=== PATIENT | female | born 1960 | race Caucasian/White ===

== ENCOUNTER → 2017-09-08 09:18 | Emergency (ER) | payer BC ==
[2017-09-08 09:23] VITALS: BP 153/72
--- NOTE | 2017-09-08 10:07 | RAD ---
Edited for charges. Indication: RIGHT foot and ankle pain and lateral swelling following injury. Comparison: No relevant prior exams available on the [facility] for [place]. Technique: AP, mortise, and lateral views RIGHT ankle. AP and lateral views RIGHT foot. Report: Solitary fixation screw at the base of the first metatarsal traversing a probable healed osteotomy site. Moderate osteophytosis and joint space narrowing at the first and second metatarsal phalangeal joints. Mild osteophytosis at the talonavicular articulation. Normal articular alignment throughout. Osseous fusion at the second and third proximal interphalangeal joints. Negative for fracture, osteochondral lesion, or stigmata of stress reaction. Significant soft tissue swelling over the lateral malleolus and suggestion of talocrural joint effusion. IMPRESSION: 1. No evidence for fracture. 2. Consider potential lateral supporting ligament injury given magnitude of lateral soft tissue swelling and suggestion of talocrural joint effusion. MTDD
--- NOTE | 2017-09-08 17:48 | ED ---
Pablo Baumann Angela, scribed for Andrea eKn MD on 09/08/17 at 0932 . Lower Extremity - HPI Summary HPI Summary: This pt is a 57 y/o female presenting to [facility] c/o right ankle pain s/p twisting injury today. Pt reports she took a wrong step and twisted her right ankle inwards. She notes that after her injury she went to work. She states she wrapped her ankle with an matthew warp. Pt decided to come to the ED for increased pain. She denies LOC, knee pain or any other injury. PMHx: tibial plateau fracture in right leg (2013). She denies any other PMHx. - History of Current Complaint Chief Complaint: EDExtremityLower Stated Complaint: RIGHT ANKLE PAIN Time Seen by Provider: 09/08/17 09:25 Hx Obtained From: Patient Mechanism Of Injury: Twisted Onset of Pain: Hours Onset/Duration: Hours Pain Intensity: 8 Pain Scale Used: 0-10 Numeric Timing: Constant Location: Is Discrete @ - right ankle Character Of Pain: Aching Associated Signs And Symptoms: Positive: Other - right ankle pain Able to Bear Weight: Yes - Allergies/Home Medications Allergies/Adverse Reactions: Allergies Allergy/AdvReac Type Severity Reaction Status Date / Time No Known Allergies Allergy Verified 01/28/16 13:56 PMH/Surg Hx/FS Hx/Imm Hx Endocrine/Hematology History: Denies: Hx Diabetes Cardiovascular History: Denies: Hx Hypertension Musculoskeletal History: Denies: Hx Rheumatoid Arthritis, Hx Osteoporosis - Cancer History Hx Chemotherapy: No Hx Radiation Therapy: No - Surgical History Surgery Procedure, Year, and Place: feet - bunion/hammer toe Infectious Disease History: No Infectious Disease History: Denies: History Other Infectious Disease, Traveled Outside the [place] in Last 30 Days - Family History Known Family History: Positive: Hypertension - mother and father, Other - Mother : COPD - Social History Alcohol Use: Occasionally Substance Use Type: Reports: None Smoking Status (MU): Never Smoked Tobacco Review of Systems Negative: Fever, Chills Eyes: Negative ENT: Negative Cardiovascular: Negative Respiratory: Negative Musculoskeletal: Negative - knee pain Positive: Other - right ankle pain Negative: Headache, Syncope All Other Systems Reviewed And Are Negative: Yes Physical Exam - Summary Physical Exam Summary: VITAL SIGNS: Reviewed. GENERAL: Patient is a well-developed and nourished female who is lying comfortable in the stretcher. Patient is not in any acute respiratory distress. HEAD AND FACE: No signs of trauma. No ecchymosis, hematomas or skull depressions. No sinus tenderness. EYES: PERRLA, EOMI x 2, No injected conjunctiva, no nystagmus. EARS: Hearing grossly intact. Ear canals and tympanic membranes are within normal limits. MOUTH: Oropharynx within normal limits. NECK: Supple, trachea is midline, no adenopathy, no JVD, no carotid bruit, no c- spine tenderness, neck with full ROM. CHEST: Symmetric, no tenderness at palpation LUNGS: Clear to auscultation bilaterally. No wheezing or crackles. CVS: Regular rate and rhythm, S1 and S2 present, no murmurs or gallops appreciated. ABDOMEN: Soft, non-tender. No signs of distention. No rebound no guarding, and no masses palpated. Bowel sounds are normal. EXTREMITIES: FROM in all major joints, no edema, no cyanosis or clubbing. Right ankle tenderness. NEURO: Alert and oriented x 3. No acute neurological deficits. Speech is normal and follows commands. SKIN: Dry and warm Triage Information Reviewed: Yes Vital Signs On Initial Exam: Initial Vitals Temp Pulse Resp BP Pulse Ox 97.5 F 73 16 153/72 99 09/08/17 09:20 09/08/17 09:20 09/08/17 09:20 09/08/17 09:20 09/08/17 09:20 Vital Signs Reviewed: Yes Diagnostics - Vital Signs Vital Signs Temp Pulse Resp BP Pulse Ox 09/08/17 09:20 97.5 F 73 16 153/72 99 - Laboratory Lab Statement: Any lab studies that have been ordered have been reviewed, and results considered in the medical decision making process. - Radiology Right foot XR Xray Interpretation: No Acute Changes - IMPRESSION: 1. No evidence for fracture. 2. Consider potential lateral supporting ligament injury given magnitude of lateral soft tissue and suggestion of talocrural joint effusion. ED physician has reviewed this radiology report and agrees. Radiology Interpretation Completed By: Radiologist Right ankle XR Xray Interpretation: No Acute Changes - IMPRESSION: 1. No evidence for fracture. 2. Consider potential lateral supporting ligament injury given magnitude of lateral soft tissue and suggestion of talocrural joint effusion. ED physician has reviewed this radiology report and agrees. Radiology Interpretation Completed By: Radiologist Lower Extremity Course/Dx - Course Assessment/Plan: This pt is a 57 y/o female presenting to [facility] c/o right ankle pain s/p twisting injury today. Pt reports she took a wrong step and twisted her right ankle inwards. She notes that after her injury she went to work. She states she wrapped her ankle with an matthew warp. Pt decided to come to the ED for increased pain. She denies LOC, knee pain or any other injury. PMHx: tibial plateau fracture in right leg (2013). She denies any other PMHx. XR of right foot is negative for fracture or dislocation. XR of right ankle is negative for fracture or dislocation. In the ED course, she did not require pain medications. We placed bandages, an aircast brace and was given crutches. She will follow up with PCP and orthopedics as needed. Pt is hemodynamically stable , alert and oriented x3. - Diagnoses Differential Diagnosis/HQI/PQRI: Positive: Bursitis, Fracture (Closed), Sprain, Strain, Tendonitis Provider Diagnoses: Right ankle pain Discharge - Discharge Plan Condition: Stable Disposition: HOME Prescriptions: Ibuprofen TAB* [Motrin TAB* 600 MG] 600 mg PO Q8H PRN #20 tab PRN Reason: Pain Patient Education Materials: Arthralgia (ED) Referrals: Anupama Maldonado MD [Primary Care Provider] - Additional Instructions: Please follow up with your primary care provider. RETURN TO THE ED IF YOUR SYMPTOMS WORSEN. The documentation as recorded by the Pablo lucas Angela accurately reflects the service I personally performed and the decisions made by , Andrea Ken MD.
== END | disposition home or self-care (01) ==
LOC: ED 09:18
DX: M25.571 Pain in right ankle and joints of right foot (principal)
CPT/HCPCS: 99281

== ENCOUNTER 2019-08-12 12:53 | Emergency (ER) | payer OTHER, BC ==
--- NOTE | 2019-08-12 13:18 | ED ---
Adult Trauma - HPI Summary HPI Summary: Patient is a 59-year-old female who presents emergency department for right shoulder and hip pain after falling from a horse just prior to arrival. Patient states she was riding a horse inside rink when the horse was spooked and threw pt. off. Pt. states she struck a wall with her right side. Denies head injury or LOC. Pt. denies CP, SOB, abd. pain, numbness, tingling or weakness. Is not anticoagulated. Movement makes sxs worse. Rest makes sxs better. - History of Current Complaint Chief Complaint: EDFall Stated Complaint: R SHOULDER PAIN PER EMS Time Seen by Provider: 08/12/19 13:01 Hx Obtained From: Patient Pain Intensity: 5 - Allergy/Home Medications Allergies/Adverse Reactions: Allergies Allergy/AdvReac Type Severity Reaction Status Date / Time No Known Allergies Allergy Verified 01/28/16 13:56 PMH/Surg Hx/FS Hx/Imm Hx Previously Healthy: Yes Endocrine/Hematology History: Denies: Hx Diabetes Cardiovascular History: Denies: Hx Hypertension Musculoskeletal History: Denies: Hx Rheumatoid Arthritis, Hx Osteoporosis - Cancer History Hx Chemotherapy: No Hx Radiation Therapy: No - Surgical History Surgery Procedure, Year, and Place: feet - bunion/hammer toe Infectious Disease History: No Infectious Disease History: Denies: History Other Infectious Disease, Traveled Outside the [place] in Last 30 Days - Family History Known Family History: Positive: Unknown, Hypertension - mother and father, Other - Mother: COPD - Social History Occupation: Retired Lives: With Family Alcohol Use: Occasionally Substance Use Type: Reports: None Smoking Status (MU): Never Smoked Tobacco Review of Systems ENT: Negative Cardiovascular: Negative Negative: Chest Pain Respiratory: Negative Negative: Shortness Of Breath Gastrointestinal: Negative Negative: Abdominal Pain Genitourinary: Negative Negative: hematuria Positive: Other - right shoulder and right hip pain Positive: Bruising Neurological: Negative Negative: Headache, Weakness, Paresthesia, Numbness, Syncope, Slurred Speech All Other Systems Reviewed And Are Negative: Yes Physical Exam Triage Information Reviewed: Yes Vital Signs On Initial Exam: Initial Vitals Temp Pulse Resp BP Pulse Ox 98.8 F 94 20 142/80 99 08/12/19 13:05 08/12/19 13:05 08/12/19 13:05 08/12/19 13:05 08/12/19 13:05 Vital Signs Reviewed: Yes Appearance: Positive: Well-Appearing - Pt. lying in bed in NAD. Pleasant. Friend present. Skin: Positive: Warm, Dry Head/Face: Positive: Normal Head/Face Inspection. Negative: Cephalohematoma Eyes: Positive: Normal, EOMI, MARIANA, Conjunctiva Clear Neck: Positive: Supple, Other: - No midline cervical tenderness. Pain over trapizeus muscles. Respiratory/Lung Sounds: Positive: Clear to Auscultation, Breath Sounds Present. Negative: Decreased Breath Sounds Cardiovascular: Positive: Normal, RRR Abdomen Description: Positive: Nontender, Soft Musculoskeletal: Positive: Other - No midline vertebral tenderness. Pain over proximal right humerous. Good radial pulse. Overlying superficial abrasion. Pain and hematoma to right lateral hip. Good pedal pulse. No distal bony tenderness. Neurological: Positive: Normal, CN Intact II-III Psychiatric: Positive: Affect/Mood Appropriate Diagnostics - Vital Signs Vital Signs Temp Pulse Resp BP Pulse Ox 08/12/19 13:05 98.8 F 91 20 142/80 99 - Laboratory Lab Statement: Any lab studies that have been ordered have been reviewed, and results considered in the medical decision making process. Adult Trauma Course/Dx - Course Course Of Treatment: Patient presenting after falling from a horse. No head chest or abdominal injuries. Vital signs are stable. Patient declines analgesics. X-rays of cervical spine, right shoulder and right hip are negative for acute findings, reading per radiology. Patient ambulatory to the restroom and had a lot of pain bearing weight on to the right hip. Given age and arthritic changes Will obtain CT scan to rule out occult fracture. CT scan of pelvis is negative for occult fracture, reading per radiology. Results discussed. Advised patient to ice and elevate affected areas intermittently. Tylenol or Motrin for pain as directed. To follow-up with family doctor for recheck within 1 week. Return to the ER symptoms change or worsen. Patient understands and agrees with plan. - Diagnoses Differential Diagnosis/HQI/PQRI: Positive: Contusion(s), Fracture, Dislocation, Hematoma(s), Sprain, Strain Provider Diagnoses: Cervical strain, Contusion, hip, Arm contusion Discharge ED - Sign-Out/Discharge Documenting (check all that apply): Patient Departure Patient Received Moderate/Deep Sedation with Procedure: No - Discharge Plan Condition: Good Disposition: HOME Patient Education Materials: Cervical Strain (ED), Shoulder Pain (ED), Hip Contusion (ED) Forms: *Work Release Referrals: Anupama Maldonado MD [Primary Care Provider] - Additional Instructions: Follow up with your PCP Ice areas intermittently Activity as tolerated Tylenol or Motrin for pain as directed Return to ER if symptoms change or worsen - Billing Disposition and Condition Condition: GOOD Disposition: Home
--- OUTSIDE RECORDS SUMMARY | 2019-08-12 13:29 | XMS REPORT | Continuity of Care Document ---
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 Onset: 04/15/2009 Social History Type Date Description Comments Sex Unknown Tobacco Use Start: Unknown Nonsmoker Smoking Status Reviewed: 05/14/19 Nonsmoker ETOH Use Occasionally consumes alcohol Tobacco Use Start: Unknown Patient has never smoked Recreational Drug Use Denies Drug Use Allergies, Adverse Reactions, Alerts Description No Known Drug Allergies Medications Active Medications SIG Qnty Indications Ordering Provider Date Vitamin D3 1 by mouth every Unknown Capsules day Probiotic 1 by mouth every Unknown Capsules day Magnesium 1/2 tablet daily Unknown Tablet Vitamin A 1 capsule daily Unknown Capsules History Medications Ciclopirox Olamine apply to affected 30gm R21 Palak Ly, 2018 - area on face Stephen 05/28/2019 0.77% Cream twice a day Immunizations CPT Code Status Date Vaccine Lot # [id number] Given 09/12/2017 Tdap Tetanus, W Pertussis [id number] Vital Signs Date Vital Result Comment 07/24/2019 9:49am BP Systolic 130 mmHg BP Diastolic 70 mmHg Heart Rate 70 /min Body Temperature 98.2 F Respiratory Rate 16 /min Height 64 inches 5'4" Weight 169.00 lb BMI (Body Mass Index) 29.0 kg/m2 05/21/2019 8:54am BP Systolic 132 mmHg BP Diastolic 82 mmHg Heart Rate 68 /min Body Temperature 98.1 F Weight 175.00 lb Results Test Date Facility Test Result H/L Range Note Laboratory [place] 07[place]24/2019 [facility] [place]> finding Thinprep w/rfx([facility] [place]) Lipid Profile 05/30/2019 Leslie Briseyda([facility]) Cholesterol 205 mg/dL High 120-200 Triglycerides 47 mg/dL 30-200 HDL Cholesterol 69 mg/dL 30-85 LDL (Calculated) 127 CALC 0-129 VLDL Cholesterol 9 mg/dL 0-50 HDL Risk Factor 3.0 CALC 0.0-4.4 Laboratory test finding 05/30/2019 Leslie Briseyda([facility]) TSH 2.19 mIU/L 0.50-6.00 Comprehensive Metabolic 05/30/2019 Leslie Briseyda([facility]) Sodium 138 mEq/L 134-149 Prof Potassium 4.4 mEq/L 3.6-5.5 Chloride 100 mEq/L 94-112 Carbon Dioxide 29 mEq/L 21-32 Glucose 105 mg/dL 70-105 BUN 18 mg/dL 6-26 Creatinine 0.7 mg/dL 0.6-1.4 BUN/Creat Ratio 25.7 CALC 8.0-36.0 Calcium 9.1 mg/dL 8.6-10.2 Total Protein 6.4 g/dL 6.4-8.3 Albumin 4.2 g/dL 3.8-5.5 Globulin 2.2 g/dL 2.0-4.8 A/G Ratio 1.9 CALC 0.6-2.3 Alk. Phosphatase 57 U/L 30-110 Alt (SGPT) 15 U/L 7-35 Ast (Sgot) 11 U/L 5-34 Total Bilirubin 0.7 mg/dL 0.2-1.3 GFR Non- >60 ml/min/1.73m^ >=60 GFR >60 ml/min/1.73m^ >=60 Laboratory test 05/30/2019 Leslie Briseyda([facility]) Vitamin D25 38 30-100 finding CBC Electronic a 05/30/2019 Leslie Briseyda([facility]) WBC 4.1 4.0-10.0 x10^3/UL RBC 4.55 x10^6/UL 3.93-6.00 HGB 13.7 g/dL 12.0-17.0 HCT 41 % 35-50 MCV 90.3 fL 80.0-95.0 MCH 30.1 pg 25.6-32.2 MCHC 33.3 g/dL 32.2-36.0 RDW-CV 12.7 % 11.6-14.4 PLT 311 x10^3/UL 163-400 MPV 10.4 fL 9.4-12.4 Lavonne# 2.53 x10^3/UL 1.56-6.13 Lymph# 1.04 x10^3/UL Low 1.18-3.74 Marion# 0.41 x10^3/UL 0.24-0.82 Eos # 0.1 x10^3/UL 0.0-0.5 Baso # 0.03 x10^3/UL 0.01-0.08 Lavnone% 61.9 % 34.0-70.0 Lymph % 25.4 % 20.0-52.0 Marion% 10.0 % 5.0-12.0 Eos% 2.0 % 0.7-7.0 Baso% 0.7 % 0.1-1.2 Procedures Date Code Description Status 05/21/2019 [id number] Mammogram Completed 02/04/2015 [id number] Mammogram Completed 01/28/2015 [id number] Colonoscopy Completed 06/05/2013 [id number] Mammogram Completed 08/11/2011 [id number] Mammogram Completed 02/04/2010 [id number] Mammogram Completed 01/22/2010 [id number] Colonoscopy Completed 02/19/2008 [id number] Mammogram Completed 02/17/2007 [id number] Mammogram Completed Medical Devices Description No Information Available Encounters Type Date Location Provider Dx Diagnosis Office Visit 05/21/2019 Main Office Carrie Phelan Rash and other 9:00a Afnp-C nonspecific skin eruption Z13.220 Encounter for screening for lipoid disorders Z13.228 Encounter for screening for other metabolic disorders Office Visit 05/14/2019 10:45a [facility] Palak Butler Rash and other Stephen Ly nonspecific skin eruption Z12.31 Encntr screen mammogram for malignant neoplasm of breast Assessments Date Code Description Provider 07/24/2019 Z01.419 Encounter for gynecological examination Palak Hilsdorf , Afnp-C (general) (routine) without abnormal findings 05/30/2019 Z13.220 Encounter for screening for lipoid Palak Ly, Afnp -C disorders 05/30/2019 Z13.228 Encounter for screening for other Palak Olsenorf, Afnp- C metabolic disorders 05/30/2019 E55.9 Vitamin D deficiency, unspecified Palak Ly, Afnp-C 05/21/2019 R21 Rash and other nonspecific skin eruption Palak Olsenorf, Afnp-C 05/21/2019 Z13.220 Encounter for screening for lipoid Palak Hilsdorf, Afnp -C disorders 05/21/2019 Z13.228 Encounter for screening for other Palak Hilsdorf, Afnp- C metabolic disorders 05/14/2019 R21 Rash and other nonspecific skin eruption Palak Olsenorf, Afnp-C 05/14/2019 Z12.31 Encounter for screening mammogram for Palak Ly, Fridanp-C malignant neoplasm of Plan of Treatment 07/24/2019 - Julio Phelan-CZ01.419 Encounter for gynecological examination (general) (routine) without abnormal findingsAllComments:Medication Management Patient Understands medications she's taking? Yes No no rx meds Are there Barriers to Adherence? Yes No Has the patient been asked about herbal supplements and therapies, and OTC meds? Yes No Care Plan1. Patient has been queried about patient's goals/preferences and functional/lifestyle goals at relevant visits. If relevant, describe: na2. Treatment goals as explained to the patient: aboveroutine health maintenance and diesase prevention 3. Are there barriers to meeting treatment goals? Yes No If Yes, please describe:4. Self-Management goals as described to the patient: Yes No labs reviewed lo cv risk will notify if pap abnormal Functional Status Description No Information Available Mental Status Description No Information Available Referrals Description No Information Available
[2019-08-12 16:23] VITALS: BP 135/78
== END 2019-08-12 16:30 | disposition home or self-care (01) ==
LOC: ED 12:53
DX: S16.1XXA Strain of muscle, fascia and tendon at neck level, initial encounter (principal); S70.01XA Contusion of right hip, initial encounter; S40.011A Contusion of right shoulder, initial encounter; V80.010A Animal-rider injured by fall from or being thrown from horse in noncollision accident, initial encounter; Y93.52 Activity, horseback riding; Y92.89 Other specified places as the place of occurrence of the external cause; M85.88 Other specified disorders of bone density and structure, other site; M16.11 Unilateral primary osteoarthritis, right hip; M50.30 Other cervical disc degeneration, unspecified cervical region; M19.011 Primary osteoarthritis, right shoulder
CPT/HCPCS: 72040; 72192; 99282

== ENCOUNTER 2022-02-02 08:29 | Observation (INO) ==
[~2022-02-02 08:29] MED LIST: Buffered Lidocaine 1% SYRIN 1 ml INTRADERM ONE; Lactated Ringers 1000 ml BAG 1,000 ML IV SCH
[2022-02-02] MEDS ORDERED: ceFAZolin 1 GM ADVAN 1 GM ADDV.VIAL IVPB ONE ×2 (08:51→08:52)
[2022-02-02] MEDS ORDERED: fentaNYL 100 mcg/2 ml 50 MCG/ML VIAL ONE ×2 (09:30→13:37)
[2022-02-02] MEDS ORDERED: Midazolam 2 mg/2 ml VIAL 1 mg/ml 2 ml VIAL (2 mg) ONE (09:30)
[2022-02-02] MEDS ORDERED: Phenylephrine IV 10 MG/ML 1 ml VIAL ONE (09:31)
[2022-02-02] MEDS ORDERED: Lidocaine 2% PF 5 ML VIAL ONE (09:31)
[2022-02-02] MEDS ORDERED: ROPIVACAINE 5 MG/ML 30 ML BTL (0.5%) ONE (09:56)
[2022-02-02] MEDS ORDERED: Propofol 10 mg/ml 100 ML BTL 100 ML ONE (09:59)
[2022-02-02] MEDS ORDERED: DiMENhydriNATE IV 50 mg/ml 1 ml VIAL IV PUSH PRN (10:17)
[2022-02-02] MEDS ORDERED: Acetaminophen IV 1 GM/100ML 100 ML IV PRN (10:17)
[2022-02-02] MEDS ORDERED: HYDROmorphone 1 MG/1 ML SYRINGE IV PRN (10:17)
[2022-02-02] MEDS ORDERED: Naloxone 0.4 mg VIAL 0.4 mg/ml 1 ml VIAL IV PRN (10:17)
[2022-02-02] MEDS ORDERED: fentaNYL 100 mcg/2 ml 50 MCG/ML VIAL IV PRN (10:17)
[2022-02-02] MEDS ORDERED: Ondansetron 4 mg VIAL 2 MG/ML 2 ml VIAL IV PRN ×2 (10:17→14:04)
[2022-02-02] MEDS ORDERED: Dexamethasone IV 4 MG/ML VIAL 1 ml VIAL ONE (11:14)
[2022-02-02] MEDS ORDERED: Ondansetron 4 mg VIAL 2 MG/ML 2 ml VIAL ONE (11:14)
[2022-02-02] MEDS ORDERED: Glycopyrrolate IV 0.2 MG/ML 1 ML VIAL ONE (11:21)
[2022-02-02] MEDS ORDERED: diPHENhydraMINE IV 50 MG/ML 1 ml VIAL (BENADRYL) IV PRN (14:04)
[2022-02-02] MEDS ORDERED: Lactulose 30 ml UDC PO PRN (14:04)
[2022-02-02] MEDS ORDERED: Magnesium Hydroxide LIQ 30 ML UDC PO PRN (14:04)
[2022-02-02] MEDS ORDERED: Ondansetron ODT 4 mg TAB 4 MG TAB PO PRN (14:04)
[2022-02-02] MEDS ORDERED: diPHENhydraMINE 25 mg TAB PO PRN (14:04)
[2022-02-02] MEDS ORDERED: Lactated Ringers 1000 ml BAG 1,000 ML IV SCH (15:00)
[2022-02-02] MEDS: ceFAZolin 1 GM ADVAN 1 GM in NS 0.9% 50 ML 50 ML IVPB SCH (20:18)
[2022-02-02] MEDS: Magnesium Hydroxide LIQ 30 ML UDC PO SCH (22:20)
[2022-02-03] MEDS: ceFAZolin 1 GM ADVAN 1 GM in NS 0.9% 50 ML 50 ML IVPB SCH ×2 (04:12→10:55)
[2022-02-03 06:48] LABS: Hematocrit 33 % (35-47); Hemoglobin 11.4 g/dL (12.0-16.0); Mean Platelet Volume 8.5 fL (7.4-10.4); Platelet Count 230 10^3/uL (150-450)
[2022-02-03 06:58] LABS: Calcium 8.8 mg/dL (8.6-10.3); Potassium 4.5 mmol/L (3.5-5.0); eGFR CKD-EPI 91.4 (>60)
[2022-02-03] MEDS ORDERED: Vitamin THERAPEUTIC TAB PO SCH (09:00)
[2022-02-03] MEDS: Magnesium Hydroxide LIQ 30 ML UDC PO SCH (09:58)
[2022-02-03 11:34] VITALS: BP 114/53
== END 2022-02-03 14:20 | disposition home or self-care (01) ==
LOC: OR 08:29 → SSU 08:29
PROVIDERS: ADMIT Orthopaedic Surgery Adult Reconstructive Orthopaedic Surgery; ATTEND Orthopaedic Surgery Adult Reconstructive Orthopaedic Surgery